=== PATIENT | male | born 1950 | race Caucasian/White ===

== ENCOUNTER 2017-01-19 21:35 | Emergency (ER) | payer BC | END 2017-01-20 01:16 | disposition home or self-care (01) | LOC: ER 21:35 | DX: S01.01XA Laceration without foreign body of scalp, initial encounter (principal); S50.11XA Contusion of right forearm, initial encounter; I10 Essential (primary) hypertension; Z23 Encounter for immunization; Z79.899 Other long term (current) drug therapy; W01.198A Fall on same level from slipping, tripping and stumbling with subsequent striking against other object, initial encounter | CPT/HCPCS: 90471 ==

== ENCOUNTER 2017-03-02 22:13 | Emergency (ER) | payer BC | END 2017-03-02 23:44 | disposition home or self-care (01) | LOC: ER 22:13 | DX: R23.3 Spontaneous ecchymoses (principal); I10 Essential (primary) hypertension; E78.5 Hyperlipidemia, unspecified; Z79.82 Long term (current) use of aspirin; Z79.899 Other long term (current) drug therapy; Z85.46 Personal history of malignant neoplasm of prostate; Z85.118 Personal history of other malignant neoplasm of bronchus and lung ==